=== PATIENT | male | born 1965 | race Caucasian/White ===

== ENCOUNTER → 2017-10-27 | Outpatient (CLI) | payer BC ==
--- NOTE | 2017-10-27 12:03 | RAD ---
Examination: Left shoulder, three views History: Pain Findings: No evidence for fracture, displacement, bone destruction or pathologic calcification. Joint spaces are only slightly narrowed. The humeral head is in normal position. Impression: Suspect mild DJD, no acute process. Reported By:
== END | disposition home or self-care (01) | DRG 556 ==
LOC: RAD 11:12
PROVIDERS: ATTEND Internal Medicine
DX: M25.512 Pain in left shoulder (principal); M19.012 Primary osteoarthritis, left shoulder
CPT/HCPCS: 73030

== ENCOUNTER → 2017-11-17 | Outpatient (CLI) | payer BC ==
--- NOTE | 2017-11-17 14:47 | MRI ---
MR left shoulder without contrast Indication: Left shoulder pain for several months Technique: Multiplanar multi sequence imaging through the left shoulder without contrast Comparison: 10/27/2017 radiograph Findings: There is type 1 acromion with mild AC joint degenerative change. No muscle belly atrophy se en. Bone marrow signal is normal. Biceps tendon is intact. Glenoid labrum shows no displaced tear. Subscapularis is normal. There is supraspinatus tendinosis with focal high articular surface signal a t the junction of the posterior fibers of the supraspinatus with the infraspinatus on coronal image 1 1 suggesting articular surface fraying. Small footprint rim rent tear is suspected a coronal image 5 and sagittal image 7, probably low-grade articular sided Impression: 1. Focal footprint tear at the anterior insertion of the supraspinatus, low-grade articular sided rim rent type. 2. Articular surface fraying/low-grade tear of the posterior fibers of the supraspinatus and anterior infraspinatus junction. 3. Mild subacromial/subdeltoid bursitis and AC joint degenerative change. Reported By:
== END | disposition home or self-care (01) | DRG 556 ==
LOC: RAD 13:02
PROVIDERS: ATTEND Internal Medicine
DX: M25.512 Pain in left shoulder (principal); S46.812A Strain of other muscles, fascia and tendons at shoulder and upper arm level, left arm, initial encounter; X58.XXXA Exposure to other specified factors, initial encounter
CPT/HCPCS: 73221

== ENCOUNTER 2020-03-15 21:03 | Inpatient (IN) ==
[2020-03-15] MEDS ORDERED: VENTOLIN or PROAIR HFA ONE (22:41)
[2020-03-15 22:54] LABS: ABG BASE EXCESS 3.1 mmol/L (-2.0-2.0)
[2020-03-15] MEDS ORDERED: NS 1000 ML 1,000 ML ONE (22:58)
[2020-03-15 23:48] LABS: BASOPHILS % (AUTO) 0.1 % (0.2-1.0); EOSINOPHILS # (AUTO) 0.1 x10^3/uL (0.0-0.2); EOSINOPHILS % (AUTO) 0.7 % (0.9-2.9); HEMATOCRIT 51.8 % (42.0-54.0); HEMOGLOBIN 17.2 g/dL (13.5-18.0); LYMPHOCYTES # (AUTO) 1.2 X10^3/uL (1.3-2.9); LYMPHOCYTES % (AUTO) 13.9 % (21.0-51.0); MEAN CORPUSCULAR HEMOGLOBIN 27.8 pg (27.0-34.0); MEAN CORPUSCULAR HGB CONC 33.2 g/dL (33.0-35.0); MEAN CORPUSCULAR VOLUME 83.6 fL (80.0-100.0); MEAN PLATELET VOLUME 8.7 fL (7.4-11.0); MONOCYTES # (AUTO) 1.2 x10^3/uL (0.3-0.8); MONOCYTES % (AUTO) 13.9 % (0.0-13.0); NEUTROPHILS # (AUTO) 6.1 x10^3/uL (2.2-4.8); NEUTROPHILS % (AUTO) 71.4 % (42.0-75.0); PLATELET COUNT 163 X10^3/uL (150.0-450.0); RED BLOOD COUNT 6.19 X10^6/uL (4.7-6.0); RED CELL DISTRIBUTION WIDTH 16.8 % (11.6-16.5); WHITE BLOOD COUNT 8.6 X10^3/uL (3.6-10.0)
[2020-03-16 00:03] LABS: ALANINE AMINOTRANSFERASE 31 Units/L (12-78); ALBUMIN 3.1 g/dL (3.4-5.0); ALKALINE PHOSPHATASE 66 Units/L (46-116); ASPARTATE AMINO TRANSFERASE 33 Units/L (15-37); BLOOD UREA NITROGEN 15 mg/dL (7-18); CALCIUM 8.5 mg/dL (8.5-10.1); CARBON DIOXIDE 28.4 mmol/L (21-32); CHLORIDE 102 mmol/L (98-107); COR CA(FOR HYPOALB) 9.2 mg/dL (8.5-10.1); COR NA(FOR HYPERGLY) 137 mmol/L (136-145); CREATININE 0.95 mg/dL (0.70-1.30); LACTATE DEHYDROGENASE 260 Units/L (85-227); SODIUM 136 mmol/L (136-145); TOTAL PROTEIN 6.7 g/dL (6.4-8.2); eGFR NON BLACK RACES > 60 (>60)
[2020-03-16 00:15] LABS: APPEARANCE,URINE HAZY (CLEAR); COLOR,URINE YELLOW (YELLOW); GLUCOSE, URINE NEGATIVE (NEGATIVE); PH,URINE 6.5 (5.0 - 8.0); PROTEIN,URINE 2+ (NEGATIVE)
[2020-03-16 00:16] LABS: BILIRUBIN,URINE NEGATIVE (NEGATIVE); BLOOD/HEMOGLOBIN,URINE NEGATIVE (NEGATIVE); KETONES,URINE 1+ (NEGATIVE); LEUKOCYTE ESTERASE ,URINE 1+ (NEGATIVE); NITRITES,URINE NEGATIVE (NEGATIVE); RBC,URINE NONE SEEN /HPF (0-3); SQUAMOUS EPITHELIAL CELL,UR NEGATIVE /HPF (NEGATIVE); UROBILINOGEN,URINE 1+ (NORMAL)
[2020-03-16 00:17] LABS: BACTERIA,URINE TRACE /HPF (NEGATIVE)
[2020-03-16] MEDS: NS 1000 ML 1,000 ML IV SCH ×5 (00:34→22:22)
[2020-03-16 01:01] VITALS: BMI 32.0
[2020-03-16] MEDS: LEVAQUIN PREMIX IV 500 MG 500 MG/100 ML BAG IV SCH ×2 (01:18→20:50)
--- NOTE | 2020-03-16 04:01 | RAD ---
Chest AP portableIndication: Dyspnea. Cough and fever. History of baer virus exposure.COMPARISONJan2017 left shoulderFINDINGSPatchy bilateral pulmonary opacities are noted, similar peripherally located. Heart size is normal. There is no pneumothorax.IMPRESSIONPatchy pulmonary opacities could reflect multifocal pneumonia. Specifically, viral etiologies cannot be excluded. Follow-up to exclude baer virus recommended. Also recommend follow-up to exclude underlying lesion.Electronically signed by: COBY LAUGHLIN (Mar 16, 2020 04:00:22)
[2020-03-16 05:31] LABS: BASOPHILS % (AUTO) 0.6 % (0.2-1.0); EOSINOPHILS % (AUTO) 0.6 % (0.9-2.9); HEMATOCRIT 51.4 % (42.0-54.0); HEMOGLOBIN 17.3 g/dL (13.5-18.0); LYMPHOCYTES # (AUTO) 1.4 X10^3/uL (1.3-2.9); LYMPHOCYTES % (AUTO) 17.3 % (21.0-51.0); MEAN CORPUSCULAR HGB CONC 33.6 g/dL (33.0-35.0); MEAN CORPUSCULAR VOLUME 83.3 fL (80.0-100.0); MEAN PLATELET VOLUME 8.2 fL (7.4-11.0); MONOCYTES % (AUTO) 12.4 % (0.0-13.0); NEUTROPHILS # (AUTO) 5.5 x10^3/uL (2.2-4.8); NEUTROPHILS % (AUTO) 69.1 % (42.0-75.0); PLATELET COUNT 153 X10^3/uL (150.0-450.0); RED BLOOD COUNT 6.17 X10^6/uL (4.7-6.0)
[2020-03-16 05:49] LABS: ALANINE AMINOTRANSFERASE 29 Units/L (12-78); ALBUMIN 2.9 g/dL (3.4-5.0); ALKALINE PHOSPHATASE 58 Units/L (46-116); ASPARTATE AMINO TRANSFERASE 35 Units/L (15-37); BLOOD UREA NITROGEN 13 mg/dL (7-18); CALCIUM 8.3 mg/dL (8.5-10.1); CARBON DIOXIDE 27.5 mmol/L (21-32); CHLORIDE 102 mmol/L (98-107); COR CA(FOR HYPOALB) 9.2 mg/dL (8.5-10.1); CREATININE 0.86 mg/dL (0.70-1.30); SODIUM 136 mmol/L (136-145); TOTAL PROTEIN 6.4 g/dL (6.4-8.2); eGFR NON BLACK RACES > 60 (>60)
[2020-03-16] MEDS: VENTOLIN or PROAIR HFA IN PRN ×3 (09:25→21:42)
[2020-03-16] MEDS ORDERED: FIORICET #3 W/CODEINE CAP PO PRN (10:05)
[2020-03-16] MEDS: TESSALON PERLES PO SCH ×3 (10:30→21:55)
[2020-03-16] MEDS: TUSSIONEX PENNKINETIC SUSP PO SCH ×2 (10:30→22:32)
[2020-03-16] MEDS: LOVENOX INJ 40 MG SYR SC SCH (10:30)
[2020-03-16] MEDS ORDERED: ACTEMRA 400 MG in NS 100 ML IV 80 ML IV NR (11:00)
[2020-03-16] MEDS ORDERED: REMDESIVIR (INVESTIGATIONAL DRUG GS-5734) 200 MG in NS 250 ML IV 250 ML IV NR (11:15)
--- NOTE | 2020-03-16 11:37 | DR.H&P ---
H&P - History & Physical for Day of: H&P Date: 03/15/20 - Chief Complaint Chief Complaint: COUGH, FEVER, SOB - History of Present Illness History of Present Illness: IS A 55 YEAR OLD PATIENT OF OURS WHO PRESENTED TO THE HOSPITAL A DIRECT ADMISSION DUE TO COMPLAINTS OF COUGH, SOB, AND FEVER. HE REPORTS THAT HIS SPOUSE TESTED POSITIVE FOR COVID-19 EARLIER IN THE WEEK. HE REPORTS TAKING MUCINEX DM AT HOME WITHOUT IMPROVEMENT IN SYMPTOMS. HIS PAST MEDICAL HISTORY INCLUDES: HTN, HIATAL HERNIA, URINARY RETENTION DUE TO ENLARGED PROSTATE GLAND, TONSILLECTOMY, AND HERNIA REPAIR X 3. ON ARRIVAL TO THE UNIT, VITALS WERE 98.8-84-20-90%NC-127/67. LABS WERE OBTAINED. ABNORMAL LAB VALUES INCLUDE THE FOLLOWING: RBC 6.19, GLUCOSE 122, LDH 260, CRP 25.50, ALBUMIN 3.1. ABG: PH 7.460, PC02 38.0, P02 79.0, HC03 27.0, 02 SATURATION 96.0, BASE EXCESS 3.1. URINALYSIS UNREMARKABLE. COVID-19 OBTAINED FOR SEND OUT. A CHEST XRAY WAS OBTAINED AND REVEALED: Patchy pulmonary opacities could reflect multifocal pneumonia. Specifically, viral etiologies cannot be excluded. Follow- up to exclude baer virus recommended. Also recommend follow-up to exclude underlying lesion. HE WAS STARTED ON NORMAL SALINE AT 125ML/HR, LEVAQUIN 500MG IV DAILY, VENTOLIN INHALER 2 PUFFS Q4H PRN, AND SUPPLEMENTAL OXYGEN. TODAY, WE WILL ADMINISTER ACTEMRA 400MG IV X 1 DOSE, REMDESIVIR 200MG IV X 1 THEN 100MG IV DAILY, LOVENOX 40MG SC DAILY, TESSALON PERLES TID,TUSSIONEX 5ML PO Q12H, AND FIORCET 2 CAPSULES Q6H PRN HEADACHE. OTHERWISE, WE WILL FOLLOW UP WITH AM LABS AND CHEST XRAY AND CONTINUE TO MONITOR. - Past Medical History Past Medical History: Hypertension Additional Medical History: ENLARGED PROSTATE, URINARY RETENTION - Past Surgical History Surgical History: Abdominal Surgery, Tonsillectomy Additional Surgical History: HERNIA REPAIR X 3 - Family History Family Medical History: Hypertension - Social History Alcohol Use: None, Occasionally Drug Use: None - Medications Home Medications: No Known Drug Allergies Allergy (Verified 03/15/20 23:39) CONTINUE taking the following medications amoxicillin-pot clavulanate 1 tab PO BID 03/16/20 [History] clonazepam 1 mg PO HS 03/16/20 [History] hydrocodone-chlorpheniramine 5 ml PO Q12H PRN 03/16/20 [History] lisinopril-hydrochlorothiazide 1 tab PO DAILY 03/16/20 [History] methylprednisolone 4 mg PO DIRECTED 03/16/20 [History] tamsulosin 0.4 mg PO HS 03/16/20 [History] - Review of Systems Constitutional: Fever, Chills, Weakness Eyes: No Symptoms Reported ENT: No Symptoms Reported Respiratory: See HPI, Cough, Shortness of Breath, SOB with Excertion, Wheezing Cardiovascular: No Symptoms Reported Gastrointestinal: No Symptoms Reported Genitourinary: No Symptoms Reported Musculoskeletal: No Symptoms Reported Skin: No Symptoms Reported Neurological: Weakness - Physical Exam Vital Signs: Temperature 98.4 F Pulse Rate 93 Respiratory Rate 21 Blood Pressure 134/77 O2 Sat by Pulse Oximetry 93 Oriented: Normal Eyes: Normal Ear: Normal Nose: Normal Throat: Normal Respiratory: Wheezes Throughout Cardiovascular: Normal : Normal Auscultation: Bowel Sounds: Normal Palpation: Normal Tenderness: Normal Skin: Normal Musculoskeletal: Normal Psychiatric: Normal Mood Description: Calm Affect: Normal Speech Pattern: Clear - Assessment/Plan (1) Pneumonia Qualifiers: Pneumonia type: due to unspecified organism Laterality: bilateral Lung location: unspecified part of lung Qualified Code(s): J18.9 - Pneumonia, unspecified organism Status: Acute Plan: ADMIT, NORMAL SALINE AT 125ML/HR, LEVAQUIN 500MG IV DAILY, VENTOLIN INHALER 2 PUFFS Q4H PRN, AND SUPPLEMENTAL OXYGEN. ADMINISTER ACTEMRA 400MG IV X 1 DOSE, REMDESIVIR 200MG IV X 1 THEN 100MG IV DAILY, LOVENOX 40MG SC DAILY, TESSALON PERLES TID,TUSSIONEX 5ML PO Q12H, AND FIORCET 2 CAPSULES Q6H PRN HEADACHE (2) Exposure to COVID-19 virus Status: Acute (3) SOB (shortness of breath) Status: Acute (4) Fever Qualifiers: Fever type: unspecified Qualified Code(s): R50.9 - Fever, unspecified Status: Acute (5) Cough Status: Acute - Allergies Allergies/Adverse Reactions: Allergies Allergy/AdvReac Type Severity Reaction Status Date / Time No Known Drug Allergies Allergy Verified 03/15/20 23:39
[2020-03-16] MEDS: ZESTORETIC 10/ 12.5MG PO SCH (14:17)
[2020-03-16] MEDS: FLOMAX PO SCH (20:50)
[2020-03-16] MEDS: KLONOPIN TAB 1 MG PO SCH (20:50)
[2020-03-17] MEDS: VENTOLIN or PROAIR HFA IN PRN ×5 (00:29→19:27)
[2020-03-17 05:42] LABS: BASOPHILS % (AUTO) 0.3 % (0.2-1.0); EOSINOPHILS # (AUTO) 0.1 x10^3/uL (0.0-0.2); EOSINOPHILS % (AUTO) 3.4 % (0.9-2.9); HEMATOCRIT 52.3 % (42.0-54.0); HEMOGLOBIN 17.5 g/dL (13.5-18.0); LYMPHOCYTES # (AUTO) 1.6 X10^3/uL (1.3-2.9); LYMPHOCYTES % (AUTO) 39.8 % (21.0-51.0); MEAN CORPUSCULAR HEMOGLOBIN 27.7 pg (27.0-34.0); MEAN CORPUSCULAR HGB CONC 33.4 g/dL (33.0-35.0); MONOCYTES # (AUTO) 0.8 x10^3/uL (0.3-0.8); MONOCYTES % (AUTO) 19.5 % (0.0-13.0); NEUTROPHILS # (AUTO) 1.5 x10^3/uL (2.2-4.8); PLATELET COUNT 171 X10^3/uL (150.0-450.0); RED CELL DISTRIBUTION WIDTH 17.1 % (11.6-16.5)
[2020-03-17 05:53] LABS: ALANINE AMINOTRANSFERASE 32 Units/L (12-78); ALBUMIN 2.9 g/dL (3.4-5.0); ALKALINE PHOSPHATASE 55 Units/L (46-116); ASPARTATE AMINO TRANSFERASE 40 Units/L (15-37); BLOOD UREA NITROGEN 11 mg/dL (7-18); CALCIUM 8.6 mg/dL (8.5-10.1); CARBON DIOXIDE 29.7 mmol/L (21-32); CHLORIDE 100 mmol/L (98-107); COR CA(FOR HYPOALB) 9.5 mg/dL (8.5-10.1); CREATININE 0.84 mg/dL (0.70-1.30); SODIUM 136 mmol/L (136-145); TOTAL PROTEIN 6.8 g/dL (6.4-8.2); eGFR NON BLACK RACES > 60 (>60)
--- NOTE | 2020-03-17 06:14 | RAD ---
HISTORYSOBSTUDYPortable AP [id number]/14/2020FINDINGSContinued normal heart size. The left lung is essentially clear. The re are again noted increased linear pulmonary markings in the right base consistent with infiltrate o r subsegmental atelectasis. No consolidation, pneumothorax or pleural fluid.IMPRESSIONSuspect right b catarina infiltrate/atelectasis. There is little change since prior. Continued follow-up suggested.Electr onically signed by: ANDRE WRAY (Mar 17, 2020 06:13:14)
[2020-03-17] MEDS: SOLU-Medrol 40 MG VIAL IVP SCH ×3 (06:23→21:45)
[2020-03-17] MEDS: TESSALON PERLES PO SCH ×3 (06:23→21:45)
[2020-03-17] MEDS: NS 1000 ML 1,000 ML IV SCH ×3 (06:37→21:59)
[2020-03-17] MEDS: LOVENOX INJ 40 MG SYR SC SCH (08:10)
[2020-03-17] MEDS: REMDESIVIR (INVESTIGATIONAL DRUG GS-5734) 100 MG in NS 250 ML IV 250 ML IV SCH (08:11)
[2020-03-17] MEDS: ZESTORETIC 10/ 12.5MG PO SCH ×2 (08:11→08:19)
[2020-03-17 09:48] LABS: ABG ALLEN TEST POS; ABG HCO3 27.1 mmol/L (22-26)
[2020-03-17] MEDS: TUSSIONEX PENNKINETIC SUSP PO SCH ×2 (09:59→22:02)
[2020-03-17] MEDS ORDERED: SOLU-Medrol 40 MG VIAL ONE (14:04)
[2020-03-17] MEDS ORDERED: TESSALON PERLES PO ONE (14:04)
[2020-03-17] MEDS: KLONOPIN TAB 1 MG PO SCH (21:45)
[2020-03-17] MEDS: FLOMAX PO SCH (21:45)
[2020-03-17] MEDS: LEVAQUIN PREMIX IV 500 MG 500 MG/100 ML BAG IV SCH (21:45)
[2020-03-18] MEDS: NS 1000 ML 1,000 ML IV SCH ×4 (04:14→22:51)
[2020-03-18] MEDS: VENTOLIN or PROAIR HFA IN PRN ×2 (04:26→08:05)
[2020-03-18 04:28] LABS: ABG ALLEN TEST POS; ABG BASE EXCESS 1.9 mmol/L (-2.0-2.0); ABG HCO3 26.6 mmol/L (22-26)
[2020-03-18 05:42] LABS: BASOPHILS # (AUTO) 0.1 X10^3/uL (0.0-0.1); HEMATOCRIT 51.5 % (42.0-54.0); LYMPHOCYTES # (AUTO) 0.7 X10^3/uL (1.3-2.9); LYMPHOCYTES % (AUTO) 12.3 % (21.0-51.0); MEAN CORPUSCULAR HEMOGLOBIN 27.3 pg (27.0-34.0); MEAN CORPUSCULAR HGB CONC 32.9 g/dL (33.0-35.0); MEAN PLATELET VOLUME 8.1 fL (7.4-11.0); MONOCYTES # (AUTO) 0.4 x10^3/uL (0.3-0.8); MONOCYTES % (AUTO) 7.6 % (0.0-13.0); NEUTROPHILS # (AUTO) 4.3 x10^3/uL (2.2-4.8); NEUTROPHILS % (AUTO) 78.1 % (42.0-75.0); PLATELET COUNT 213 X10^3/uL (150.0-450.0); RED BLOOD COUNT 6.21 X10^6/uL (4.7-6.0); RED CELL DISTRIBUTION WIDTH 16.7 % (11.6-16.5); WHITE BLOOD COUNT 5.6 X10^3/uL (3.6-10.0)
[2020-03-18] MEDS: TESSALON PERLES PO SCH ×3 (06:12→21:30)
[2020-03-18] MEDS: SOLU-Medrol 40 MG VIAL IVP SCH ×3 (06:12→21:30)
[2020-03-18 06:24] LABS: ALANINE AMINOTRANSFERASE 39 Units/L (12-78); ALBUMIN 2.9 g/dL (3.4-5.0); ALKALINE PHOSPHATASE 53 Units/L (46-116); ASPARTATE AMINO TRANSFERASE 37 Units/L (15-37); BLOOD UREA NITROGEN 21 mg/dL (7-18); CALCIUM 8.8 mg/dL (8.5-10.1); CARBON DIOXIDE 25.5 mmol/L (21-32); CHLORIDE 102 mmol/L (98-107); COR CA(FOR HYPOALB) 9.7 mg/dL (8.5-10.1); COR NA(FOR HYPERGLY) 137 mmol/L (136-145); CREATININE 0.73 mg/dL (0.70-1.30); SODIUM 135 mmol/L (136-145); TOTAL PROTEIN 6.6 g/dL (6.4-8.2); eGFR NON BLACK RACES > 60 (>60)
--- NOTE | 2020-03-18 06:33 | RAD ---
HISTORYSOBSTUDYPortable AP chestCOMPARISONJune 2019FINDINGSStable heart size. Essentially clear left lung. Persistent ill-defined interstitial process in the right lower lung as before. No developing consolidation, pleural fluid or extrapulmonary air.IMPRESSIONNo change in appearance of the chest since 1 day prior.Electronically signed by: ANDRE WRAY (Mar 18, 2020 06:32:36)
[2020-03-18] MEDS: LOVENOX INJ 40 MG SYR SC SCH (08:08)
[2020-03-18] MEDS: ZESTORETIC 10/ 12.5MG PO SCH (08:09)
[2020-03-18] MEDS: REMDESIVIR (INVESTIGATIONAL DRUG GS-5734) 100 MG in NS 250 ML IV 250 ML IV SCH (08:56)
[2020-03-18] MEDS: TUSSIONEX PENNKINETIC SUSP PO SCH ×2 (10:03→22:15)
[2020-03-18] MEDS: PULMICORT NEB TX 0.5 MG NEB SCH ×2 (10:13→22:05)
--- NOTE | 2020-03-18 10:33 | PCM.PROG ---
Progress Note - Progress Note for Day of Date of Exam: 03/17/20 - Subjective Subjective: IS BEING TREATED FOR PNEUMONIA, SOB, HYPOXIA, AND EXPOSURE TO COVID-19. TODAY, HE IS ALERT AND ORIENTED, LYING IN BED ON MORNING ROUNDS. HE CONTINUES WITH COMPLAINTS OF COUGH AND SHORTNESS OF BREATH TODAY. HE REPORTS BEING MORE SHORT OF BREATH TODAY. ON EXAMINATION, HEART IS REGULAR IN RATE AND RHYTHM. BILATERAL LUNGS ARE NOTED WITH SCATTERED WHEEZING THROUGHOUT. ABDOMEN IS ROUND, SOFT, AND NON-TENDER WITH NORMAL BOWEL SOUNDS NOTED IN ALL QUADRANTS. HIS VITALS THIS MORNING ARE: 98.8-79-19-93%NC-122/64. LABS WERE OBTAINED. ABNORMAL LAB VALUES INCLUDE THE FOLLOWING: RBC 6.30, AST 40, CRP 36.0, ALBUMIN 2.9. COVID-19 PENDING. BLOOD CULTURES ARE PENDING. A CHEST XRAY WAS OBTAINED AND REVEALED: Suspect right basal infiltrate/atelectasis. There is little change since prior. Continued follow-up suggested. HE IS CURRENTLY RECEIVING 1/2NS AT 75 ML/HR, LEVAQUIN 500MG IV DAILY, REMDESIVIR 100MG IV DAILY, THE POTASSIUM AND MAGNESIUM PROTOCOL, MORPHINE 1-2MG IV Q4H PRN, TESSALON PERLES 200MG PO TID, TUSSIONEX 5ML PO Q12H, PROAIR INHALER 2 PUFFS Q4H PRN, AND LOVENOX 40MG SC DAILY. WE WILL CONTINUE WITH CURRENT PLAN OF CARE TODAY AND START HEATED HIGH FLOW OXYGEN AND SOLU-MEDROL 40MG IV Q8H. OTHERWISE, WE WILL FOLLOW UP WITH AM LABS AND CHEST XRAY AND CONTINUE TO MONITOR. - Past Medical Family Social History Past Med/Fam/Surg Hx: No changes since H&P Allergies: Allergies No Known Drug Allergies Allergy (Verified 03/15/20 23:39) - Review of Systems ROS: No change since H&P - Vital Signs and I&O's Vital Signs: Temperature 98.0 F Pulse Rate 73 Respiratory Rate 22 Blood Pressure 124/75 O2 Sat by Pulse Oximetry 95 Intake and Output: Intake & Output 03/15/20 03/16/20 03/17/20 03/18/20 11:59 11:59 11:59 11:59 Intake Total 1275 / 1275 3928 / 3928 5072 / 5072 Output Total 600 / 600 475 / 475 1325 / 1325 Balance 675 / 675 3453 / 3453 3747 / 3747 - Physical Exam Oriented: Normal Eyes: Normal Ear: Normal Nose: Normal Throat: Normal Respiratory: Generalized, Wheezes Cardiovascular: Normal : Normal Auscultation: Bowel Sounds: Normal Palpation: Normal Tenderness: Normal Skin: Normal Musculoskeletal: Normal Psychiatric: Normal Mood Description: Calm Affect: Normal Speech Pattern: Clear, Appropriate - Laboratory and Diagnostics Result Diagrams: 03/18/20 04:17 03/18/20 04:47 Labs: 03/16/20 11:54 Blood Blood Culture - Preliminary 03/16/20 11:40 Blood Blood Culture - Preliminary Laboratory WBC 5.6 X10^3/uL (3.6-10.0) 03/18/20 04:17 RBC 6.21 X10^6/uL (4.7-6.0) H 03/18/20 04:17 Hgb 17.0 g/dL (13.5-18.0) 03/18/20 04:17 Hct 51.5 % (42.0-54.0) 03/18/20 04:17 MCV 83.0 fL (80.0-100.0) 03/18/20 04:17 MCH 27.3 pg (27.0-34.0) 03/18/20 04:17 MCHC 32.9 g/dL (33.0-35.0) L 03/18/20 04:17 RDW 16.7 % (11.6-16.5) H 03/18/20 04:17 Plt Count 213 X10^3/uL (150.0-450.0) 03/18/20 04:17 MPV 8.1 fL (7.4-11.0) 03/18/20 04:17 Neut % (Auto) 78.1 % (42.0-75.0) H 03/18/20 04:17 Lymph % (Auto) 12.3 % (21.0-51.0) L 03/18/20 04:17 [place] % (Auto) 7.6 % (0.0-13.0) 03/18/20 04:17 Eos % (Auto) 0.0 % (0.9-2.9) L 03/18/20 04:17 Baso % (Auto) 2.0 % (0.2-1.0) H 03/18/20 04:17 Neut # (Auto) 4.3 x10^3/uL (2.2-4.8) 03/18/20 04:17 Lymph # (Auto) 0.7 X10^3/uL (1.3-2.9) L 03/18/20 04:17 [place] # (Auto) 0.4 x10^3/uL (0.3-0.8) 03/18/20 04:17 Eos # (Auto) 0.0 x10^3/uL (0.0-0.2) 03/18/20 04:17 Baso # (Auto) 0.1 X10^3/uL (0.0-0.1) 03/18/20 04:17 Absolute Nucleated RBC 0.0 /100WBC 03/18/20 04:17 Sample Site Lr 03/18/20 04:15 ABG pH 7.420 (7.35-7.45) 03/18/20 04:15 ABG pCO2 41.0 mmHg (35.0-45.0) 03/18/20 04:15 ABG pO2 123.0 mmHg (80.0-100.0) H 03/18/20 04:15 ABG HCO3 26.6 mmol/L (22-26) H 03/18/20 04:15 ABG O2 Saturation 99.0 % (90-100) 03/18/20 04:15 ABG Base Excess 1.9 mmol/L (-2.0-2.0) 03/18/20 04:15 Rogerio Test Pos 03/18/20 04:15 A-a Gradient 254.0 mmHg 03/18/20 04:15 FiO2 60.0 03/18/20 04:15 Blood Gas Comments Arianna well ae 03/18/20 04:15 Sodium 135 mmol/L (136-145) L 03/18/20 04:47 Corrected Sodium 137 mmol/L (136-145) 03/18/20 04:47 Potassium 4.5 mmol/L (3.5-5.1) 03/18/20 04:47 Chloride 102 mmol/L (98-107) 03/18/20 04:47 Carbon Dioxide 25.5 mmol/L (21-32) 03/18/20 04:47 BUN 21 mg/dL (7-18) H 03/18/20 04:47 Creatinine 0.73 mg/dL (0.70-1.30) 03/18/20 04:47 Est GFR (MDRD) Af Amer > 60 (>60) 03/18/20 04:47 Est GFR (MDRD) Non-Af > 60 (>60) 03/18/20 04:47 Glucose 176 mg/dL (65-99) H 03/18/20 04:47 Calcium 8.8 mg/dL (8.5-10.1) 03/18/20 04:47 Corrected Calcium 9.7 mg/dL (8.5-10.1) 03/18/20 04:47 Ferritin 50 ng/mL (26-388) 03/18/20 04:47 Total Bilirubin 0.30 mg/dL (0.2-1.0) 03/18/20 04:47 AST 37 Units/L (15-37) 03/18/20 04:47 ALT 39 Units/L (12-78) 03/18/20 04:47 Alkaline Phosphatase 53 Units/L (46-116) 03/18/20 04:47 Lactate Dehydrogenase 260 Units/L (85-227) H 03/15/20 23:28 C-Reactive Protein 14.70 mg/L (0-3.0) H 03/18/20 04:47 Total Protein 6.6 g/dL (6.4-8.2) 03/18/20 04:47 Albumin 2.9 g/dL (3.4-5.0) L 03/18/20 04:47 Globulin 3.7 g/dL (2.5-4.5) 03/18/20 04:47 Albumin/Globulin Ratio 0.8 Ratio (1.1-2.1) L 03/18/20 04:47 Specimen Type Clean catch urine 03/15/20 23:43 Urine Color Yellow (YELLOW) 03/15/20 23:43 Urine Appearance Hazy (CLEAR) 03/15/20 23:43 Urine pH 6.5 (5.0 - 8.0) 03/15/20 23:43 Ur Specific [place] 1.010 (1.000-1.030) 03/15/20 23:43 Urine Protein 2+ (NEGATIVE) 03/15/20 23:43 Urine Glucose (UA) Negative (NEGATIVE) 03/15/20 23:43 Urine Ketones 1+ (NEGATIVE) 03/15/20 23:43 Urine Occult Blood Negative (NEGATIVE) 03/15/20 23:43 Urine Nitrite Negative (NEGATIVE) 03/15/20 23:43 Urine Bilirubin Negative (NEGATIVE) 03/15/20 23:43 Urine Urobilinogen 1+ (NORMAL) 03/15/20 23:43 Ur Leukocyte Esterase 1+ (NEGATIVE) 03/15/20 23:43 Urine RBC None seen /HPF (0-3) 03/15/20 23:43 Urine WBC 0-2 /HPF (0-5) 03/15/20 23:43 Ur Squamous Epith Cells Negative /HPF (NEGATIVE) 03/15/20 23:43 Urine Bacteria Trace /HPF (NEGATIVE) 03/15/20 23:43 Ur Culture Indicated? No/not indicated 03/15/20 23:43 - Plan (1) Pneumonia Status: Acute Qualifiers: Pneumonia type: due to unspecified organism Laterality: bilateral Lung location: unspecified part of lung Qualified Code(s): J18.9 - Pneumonia, unspecified organism Plan: NORMAL SALINE AT 125ML/HR, LEVAQUIN 500MG IV DAILY, VENTOLIN INHALER 2 PUFFS Q4H PRN, AND SUPPLEMENTAL OXYGEN, REMDESIVIR 100MG IV DAILY, LOVENOX 40MG SC DAILY, TESSALON PERLES TID,TUSSIONEX 5ML PO Q12H, AND FIORCET 2 CAPSULES Q6H PRN HEADACHE, SOLU-MEDROL 40MG IV Q8H (2) Exposure to COVID-19 virus Status: Acute (3) SOB (shortness of breath) Status: Acute (4) Fever Status: Acute Qualifiers: Fever type: unspecified Qualified Code(s): R50.9 - Fever, unspecified (5) Cough Status: Acute
[2020-03-18] MEDS: DUONEB 0.5 MG/3 MG (3 mL) NEB SCH ×3 (12:30→22:05)
[2020-03-18] MEDS: LEVAQUIN PREMIX IV 500 MG 500 MG/100 ML BAG IV SCH (21:30)
[2020-03-18] MEDS: FLOMAX PO SCH (21:30)
[2020-03-18] MEDS: KLONOPIN TAB 1 MG PO SCH (21:30)
[2020-03-19] MEDS: NS 1000 ML 1,000 ML IV SCH ×4 (01:33→22:37)
[2020-03-19 05:18] LABS: BASOPHILS % (AUTO) 0.2 % (0.2-1.0); HEMATOCRIT 47.9 % (42.0-54.0); HEMOGLOBIN 15.5 g/dL (13.5-18.0); LYMPHOCYTES # (AUTO) 1.3 X10^3/uL (1.3-2.9); LYMPHOCYTES % (AUTO) 11.5 % (21.0-51.0); MEAN CORPUSCULAR HEMOGLOBIN 27.1 pg (27.0-34.0); MEAN CORPUSCULAR HGB CONC 32.4 g/dL (33.0-35.0); MEAN CORPUSCULAR VOLUME 83.4 fL (80.0-100.0); MEAN PLATELET VOLUME 8.1 fL (7.4-11.0); MONOCYTES % (AUTO) 9.2 % (0.0-13.0); NEUTROPHILS # (AUTO) 8.7 x10^3/uL (2.2-4.8); NEUTROPHILS % (AUTO) 79.1 % (42.0-75.0); PLATELET COUNT 211 X10^3/uL (150.0-450.0); RED BLOOD COUNT 5.74 X10^6/uL (4.7-6.0); RED CELL DISTRIBUTION WIDTH 16.7 % (11.6-16.5)
[2020-03-19] MEDS: TESSALON PERLES PO SCH ×3 (05:22→22:37)
[2020-03-19] MEDS: SOLU-Medrol 40 MG VIAL IVP SCH ×3 (05:22→22:37)
[2020-03-19 05:26] LABS: ABG ALLEN TEST POS; ABG HCO3 26.5 mmol/L (22-26)
[2020-03-19] MEDS: DUONEB 0.5 MG/3 MG (3 mL) NEB SCH ×3 (05:43→20:45)
[2020-03-19 05:44] LABS: ALANINE AMINOTRANSFERASE 37 Units/L (12-78); ALBUMIN 2.7 g/dL (3.4-5.0); ALKALINE PHOSPHATASE 50 Units/L (46-116); ASPARTATE AMINO TRANSFERASE 27 Units/L (15-37); BLOOD UREA NITROGEN 20 mg/dL (7-18); CALCIUM 8.4 mg/dL (8.5-10.1); CARBON DIOXIDE 28.4 mmol/L (21-32); CHLORIDE 102 mmol/L (98-107); COR CA(FOR HYPOALB) 9.4 mg/dL (8.5-10.1); COR NA(FOR HYPERGLY) 138 mmol/L (136-145); CREATININE 0.89 mg/dL (0.70-1.30); SODIUM 137 mmol/L (136-145); TOTAL PROTEIN 6.1 g/dL (6.4-8.2); eGFR NON BLACK RACES > 60 (>60)
--- NOTE | 2020-03-19 05:59 | RAD ---
Chest AP portableIndication: DyspneaComparison March 18, 2020FINDINGSThere is no pneumothorax. There is cardiomegaly with patchy pulmonary opacities. Trace effusions noted.IMPRESSIONPatchy bilateral pulmonary opacities, similar to the prior without acute abnormality seen. Viral pneumonitis possible.Electronically signed by: COBY LAUGHLIN (Mar 19, 2020 05:58:38)
[2020-03-19] MEDS: LOVENOX INJ 40 MG SYR SC SCH (09:10)
[2020-03-19] MEDS: ZESTORETIC 10/ 12.5MG PO SCH (09:26)
[2020-03-19] MEDS: REMDESIVIR (INVESTIGATIONAL DRUG GS-5734) 100 MG in NS 250 ML IV 250 ML IV SCH (09:39)
--- NOTE | 2020-03-19 10:05 | PCM.PROG ---
Progress Note - Progress Note for Day of Date of Exam: 03/18/20 - Subjective Subjective: IS BEING TREATED FOR PNEUMONIA, SOB, HYPOXIA, AND EXPOSURE TO COVID-19. TODAY, HE IS ALERT AND ORIENTED, LYING IN BED ON MORNING ROUNDS. HE CONTINUES WITH COMPLAINTS OF COUGH AND SHORTNESS OF BREATH TODAY. HE REPORTS BEING MORE SHORT OF BREATH TODAY. ON EXAMINATION, HEART IS REGULAR IN RATE AND RHYTHM. BILATERAL LUNGS ARE NOTED WITH SCATTERED WHEEZING THROUGHOUT. ABDOMEN IS ROUND, SOFT, AND NON-TENDER WITH NORMAL BOWEL SOUNDS NOTED IN ALL QUADRANTS. HIS VITALS THIS MORNING ARE: 98.0-73-20-95%HHF-124/75. LABS WERE OBTAINED. ABNORMAL LAB VALUES INCLUDE THE FOLLOWING: RBC 6.21, SODIUM 135, BUN 21, GLUCOSE 176, CRP 14.70, ALBUMIN 2.9. COVID-19 POSITIVE. BLOOD CULTURES ARE PENDING. A CHEST XRAY WAS OBTAINED AND REVEALED NO CHANGE SINCE YESTERDAY. HE IS CURRENTLY RECEIVING 1/2NS AT 75 ML/HR, LEVAQUIN 500MG IV DAILY, REMDESIVIR 100MG IV DAILY, THE POTASSIUM AND MAGNESIUM PROTOCOL, MORPHINE 1-2MG IV Q4H PRN, SOLU-MEDROL 40MG IV Q8H, TESSALON PERLES 200MG PO TID, TUSSIONEX 5ML PO Q12H, PROAIR INHALER 2 PUFFS Q4H PRN, AND LOVENOX 40MG SC DAILY. WE WILL DISCONTINUE PROAIR INHALER TODAY AND ADD DUONEBS TID AND PULMICORT NEBS BID. OTHERWISE, WE WILL FOLLOW UP WITH AM LABS AND CHEST XRAY AND CONTINUE TO MONITOR. - Past Medical Family Social History Past Med/Fam/Surg Hx: No changes since H&P Allergies: Allergies No Known Drug Allergies Allergy (Verified 03/15/20 23:39) - Review of Systems ROS: No change since H&P - Vital Signs and I&O's Vital Signs: Temperature 97.6 F Pulse Rate 48 Respiratory Rate 17 Blood Pressure 124/60 O2 Sat by Pulse Oximetry 96 Intake and Output: Intake & Output 03/16/20 03/17/20 03/18/20 03/19/20 11:59 11:59 11:59 11:59 Intake Total 1275 / 1275 3928 / 3928 5072 / 5072 4207 / 4207 Output Total 600 / 600 475 / 475 1325 / 1325 Balance 675 / 675 3453 / 3453 3747 / 3747 4207 / 4207 - Physical Exam Oriented: Normal Eyes: Normal Ear: Normal Nose: Normal Throat: Normal Respiratory: Generalized, Wheezes Cardiovascular: Normal : Normal Auscultation: Bowel Sounds: Normal Palpation: Normal Tenderness: Normal Skin: Normal Musculoskeletal: Normal Psychiatric: Normal Mood Description: Calm Affect: Normal Speech Pattern: Clear, Appropriate - Laboratory and Diagnostics Result Diagrams: 03/19/20 05:00 03/19/20 05:00 Labs: 03/16/20 11:54 Blood Blood Culture - Preliminary 03/16/20 11:40 Blood Blood Culture - Preliminary Laboratory WBC 11.0 X10^3/uL (3.6-10.0) H 03/19/20 05:00 RBC 5.74 X10^6/uL (4.7-6.0) 03/19/20 05:00 Hgb 15.5 g/dL (13.5-18.0) 03/19/20 05:00 Hct 47.9 % (42.0-54.0) 03/19/20 05:00 MCV 83.4 fL (80.0-100.0) 03/19/20 05:00 MCH 27.1 pg (27.0-34.0) 03/19/20 05:00 MCHC 32.4 g/dL (33.0-35.0) L 03/19/20 05:00 RDW 16.7 % (11.6-16.5) H 03/19/20 05:00 Plt Count 211 X10^3/uL (150.0-450.0) 03/19/20 05:00 MPV 8.1 fL (7.4-11.0) 03/19/20 05:00 Neut % (Auto) 79.1 % (42.0-75.0) H 03/19/20 05:00 Lymph % (Auto) 11.5 % (21.0-51.0) L 03/19/20 05:00 [place] % (Auto) 9.2 % (0.0-13.0) 03/19/20 05:00 Eos % (Auto) 0.0 % (0.9-2.9) L 03/19/20 05:00 Baso % (Auto) 0.2 % (0.2-1.0) 03/19/20 05:00 Neut # (Auto) 8.7 x10^3/uL (2.2-4.8) H 03/19/20 05:00 Lymph # (Auto) 1.3 X10^3/uL (1.3-2.9) 03/19/20 05:00 [place] # (Auto) 1.0 x10^3/uL (0.3-0.8) H 03/19/20 05:00 Eos # (Auto) 0.0 x10^3/uL (0.0-0.2) 03/19/20 05:00 Baso # (Auto) 0.0 X10^3/uL (0.0-0.1) 03/19/20 05:00 Absolute Nucleated RBC 0.0 /100WBC 03/19/20 05:00 Sample Site Lr 03/19/20 05:15 ABG pH 7.430 (7.35-7.45) 03/19/20 05:15 ABG pCO2 40.0 mmHg (35.0-45.0) 03/19/20 05:15 ABG pO2 98.0 mmHg (80.0-100.0) 03/19/20 05:15 ABG HCO3 26.5 mmol/L (22-26) H 03/19/20 05:15 ABG O2 Saturation 98.0 % (90-100) 03/19/20 05:15 ABG Base Excess 2.0 mmol/L (-2.0-2.0) 03/19/20 05:15 Rogerio Test Pos 03/19/20 05:15 A-a Gradient 87.0 mmHg 03/19/20 05:15 FiO2 33.0 03/19/20 05:15 Blood Gas Comments Arianna well ae 03/19/20 05:15 Sodium 137 mmol/L (136-145) 03/19/20 05:00 Corrected Sodium 138 mmol/L (136-145) 03/19/20 05:00 Potassium 4.1 mmol/L (3.5-5.1) 03/19/20 05:00 Chloride 102 mmol/L (98-107) 03/19/20 05:00 Carbon Dioxide 28.4 mmol/L (21-32) 03/19/20 05:00 BUN 20 mg/dL (7-18) H 03/19/20 05:00 Creatinine 0.89 mg/dL (0.70-1.30) 03/19/20 05:00 Est GFR (MDRD) Af Amer > 60 (>60) 03/19/20 05:00 Est GFR (MDRD) Non-Af > 60 (>60) 03/19/20 05:00 Glucose 157 mg/dL (65-99) H 03/19/20 05:00 Calcium 8.4 mg/dL (8.5-10.1) L 03/19/20 05:00 Corrected Calcium 9.4 mg/dL (8.5-10.1) 03/19/20 05:00 Ferritin 42 ng/mL (26-388) 03/19/20 05:00 Total Bilirubin 0.30 mg/dL (0.2-1.0) 03/19/20 05:00 AST 27 Units/L (15-37) 03/19/20 05:00 ALT 37 Units/L (12-78) 03/19/20 05:00 Alkaline Phosphatase 50 Units/L (46-116) 03/19/20 05:00 Lactate Dehydrogenase 260 Units/L (85-227) H 03/15/20 23:28 C-Reactive Protein 3.50 mg/L (0-3.0) H 03/19/20 05:00 Total Protein 6.1 g/dL (6.4-8.2) L 03/19/20 05:00 Albumin 2.7 g/dL (3.4-5.0) L 03/19/20 05:00 Globulin 3.4 g/dL (2.5-4.5) 03/19/20 05:00 Albumin/Globulin Ratio 0.8 Ratio (1.1-2.1) L 03/19/20 05:00 Specimen Type Clean catch urine 03/15/20 23:43 Urine Color Yellow (YELLOW) 03/15/20 23:43 Urine Appearance Hazy (CLEAR) 03/15/20 23:43 Urine pH 6.5 (5.0 - 8.0) 03/15/20 23:43 Ur Specific [place] 1.010 (1.000-1.030) 03/15/20 23:43 Urine Protein 2+ (NEGATIVE) 03/15/20 23:43 Urine Glucose (UA) Negative (NEGATIVE) 03/15/20 23:43 Urine Ketones 1+ (NEGATIVE) 03/15/20 23:43 Urine Occult Blood Negative (NEGATIVE) 03/15/20 23:43 Urine Nitrite Negative (NEGATIVE) 03/15/20 23:43 Urine Bilirubin Negative (NEGATIVE) 03/15/20 23:43 Urine Urobilinogen 1+ (NORMAL) 03/15/20 23:43 Ur Leukocyte Esterase 1+ (NEGATIVE) 03/15/20 23:43 Urine RBC None seen /HPF (0-3) 03/15/20 23:43 Urine WBC 0-2 /HPF (0-5) 03/15/20 23:43 Ur Squamous Epith Cells Negative /HPF (NEGATIVE) 03/15/20 23:43 Urine Bacteria Trace /HPF (NEGATIVE) 03/15/20 23:43 Ur Culture Indicated? No/not indicated 03/15/20 23:43 Miscellaneous Test Covid 19 03/15/20 23:43 - Plan (1) Pneumonia Status: Acute Qualifiers: Pneumonia type: due to unspecified organism Laterality: bilateral Lung location: unspecified part of lung Qualified Code(s): J18.9 - Pneumonia, unspe cified organism Plan: NORMAL SALINE AT 125ML/HR, LEVAQUIN 500MG IV DAILY, DUONEBS TID, PULMICORT NEBS BID, AND SUPPLEMENTAL OXYGEN, REMDESIVIR 100MG IV DAILY, LOVENOX 40MG SC DAILY, TESSALON PERLES TID,TUSSIONEX 5ML PO Q12H, AND FIORCET 2 CAPSULES Q6H PRN HEADACHE, SOLU-MEDROL 40MG IV Q8H (2) Exposure to COVID-19 virus Status: Acute (3) SOB (shortness of breath) Status: Acute (4) Fever Status: Acute Qualifiers: Fever type: unspecified Qualified Code(s): R50.9 - Fever, unspecified (5) Cough Status: Acute
[2020-03-19] MEDS: PULMICORT NEB TX 0.5 MG NEB SCH ×3 (10:48→20:44)
[2020-03-19] MEDS: TUSSIONEX PENNKINETIC SUSP PO SCH ×2 (11:30→22:36)
[2020-03-19] MEDS: LEVAQUIN PREMIX IV 500 MG 500 MG/100 ML BAG IV SCH (21:25)
[2020-03-19] MEDS: KLONOPIN TAB 1 MG PO SCH (21:25)
[2020-03-19] MEDS: FLOMAX PO SCH (21:25)
[2020-03-20] MEDS: NS 1000 ML 1,000 ML IV SCH (05:00)
[2020-03-20 05:21] LABS: ABG BASE EXCESS 1.5 mmol/L (-2.0-2.0); ABG HCO3 25.9 mmol/L (22-26)
[2020-03-20 05:22] LABS: ABG ALLEN TEST POS
[2020-03-20] MEDS: DUONEB 0.5 MG/3 MG (3 mL) NEB SCH ×2 (05:43→05:44)
[2020-03-20 06:01] LABS: BASOPHILS % (AUTO) 0.2 % (0.2-1.0); HEMATOCRIT 46.8 % (42.0-54.0); HEMOGLOBIN 15.3 g/dL (13.5-18.0); LYMPHOCYTES # (AUTO) 1.1 X10^3/uL (1.3-2.9); LYMPHOCYTES % (AUTO) 12.8 % (21.0-51.0); MEAN CORPUSCULAR HEMOGLOBIN 27.1 pg (27.0-34.0); MEAN CORPUSCULAR HGB CONC 32.7 g/dL (33.0-35.0); MEAN CORPUSCULAR VOLUME 82.9 fL (80.0-100.0); MEAN PLATELET VOLUME 7.7 fL (7.4-11.0); MONOCYTES # (AUTO) 0.5 x10^3/uL (0.3-0.8); MONOCYTES % (AUTO) 5.5 % (0.0-13.0); NEUTROPHILS % (AUTO) 81.5 % (42.0-75.0); PLATELET COUNT 189 X10^3/uL (150.0-450.0); RED BLOOD COUNT 5.65 X10^6/uL (4.7-6.0); RED CELL DISTRIBUTION WIDTH 16.7 % (11.6-16.5); WHITE BLOOD COUNT 8.5 X10^3/uL (3.6-10.0)
[2020-03-20 06:02] LABS: ALANINE AMINOTRANSFERASE 36 Units/L (12-78); ALBUMIN 2.8 g/dL (3.4-5.0); ALKALINE PHOSPHATASE 53 Units/L (46-116); ASPARTATE AMINO TRANSFERASE 21 Units/L (15-37); BLOOD UREA NITROGEN 17 mg/dL (7-18); CALCIUM 8.4 mg/dL (8.5-10.1); CARBON DIOXIDE 25.8 mmol/L (21-32); CHLORIDE 103 mmol/L (98-107); COR CA(FOR HYPOALB) 9.4 mg/dL (8.5-10.1); COR NA(FOR HYPERGLY) 138 mmol/L (136-145); CREATININE 0.82 mg/dL (0.70-1.30); SODIUM 136 mmol/L (136-145); TOTAL PROTEIN 5.9 g/dL (6.4-8.2); eGFR NON BLACK RACES > 60 (>60)
--- NOTE | 2020-03-20 06:39 | RAD ---
HISTORYSOBSTUDYAP [id number]/2020FINDINGSMild stable cardiomegaly. Persistent interstitial process at the right base is present although additional improvement is noted since prior. Mild parenchymal distortion remains in the right lower lung. There is no new segmental or lobar consolidation, hilar lesion or pleural fluid.IMPRESSIONInterval improvement. No new abnormality identified.Electronically signed by: ANDRE WRAY (Mar 20, 2020 06:38:00)
[2020-03-20] MEDS: REMDESIVIR (INVESTIGATIONAL DRUG GS-5734) 100 MG in NS 250 ML IV 250 ML IV SCH (08:25)
[2020-03-20 08:55] VITALS: BP 133/91
[2020-03-20] MEDS ORDERED: ZESTRIL TAB 10 MG PO SCH (09:00)
[2020-03-20] MEDS: PULMICORT NEB TX 0.5 MG NEB SCH (09:38)
[2020-03-20] MEDS: LOVENOX INJ 40 MG SYR SC SCH (09:52)
[2020-03-20] MEDS ORDERED: HYDROCHLOROTHIAZIDE 12.5 MG CAP PO SCH (10:00)
== END 2020-03-20 11:20 | disposition home or self-care (01) | DRG 177 ==
LOC: ICU
PROVIDERS: ADMIT Internal Medicine; ATTEND Internal Medicine
DX: N40.1 Benign prostatic hyperplasia with lower urinary tract symptoms; K44.9 Diaphragmatic hernia without obstruction or gangrene; U07.1 COVID-19; R06.02 Shortness of breath; J18.8 Other pneumonia, unspecified organism; R50.9 Fever, unspecified
CPT/HCPCS: 36415; 36600; 71010; 71045; 80053; 81001; 82728; 82803; 83615; 85025; 86140; 87040; 94640; A4216; A4222; G0378; J1650; J1956; J2920; J3262; J7030; J7050; J7620; J7626